=== PATIENT | male | born 1975 | race Two or more races ===

== ENCOUNTER 2017-12-15 23:32 | Emergency (ER) | payer OTHER ==
[2017-12-15] MEDS: LIDOCAINE WITH 8.4% SOD BICARB 3 ML DISP.SYRIN. INJ (23:55)
[2017-12-15] MEDS: DIPHTH,PERTUSS(ACELL),TET TOX 0.5 ML DISP.SYRIN. VAX IM (23:57)
== END 2017-12-16 00:29 | disposition home or self-care (01) ==
LOC: ER 12-16 00:29
DX: S61.011A Laceration without foreign body of right thumb without damage to nail, initial encounter (principal); W27.8XXA Contact with other nonpowered hand tool, initial encounter; Y93.89 Activity, other specified; Y92.89 Other specified places as the place of occurrence of the external cause; Y99.8 Other external cause status
CPT/HCPCS: 12001; 90471; 90715; 99283

== ENCOUNTER 2018-04-30 16:51 | Emergency (ER) | payer BC, OTHER ==
[~2018-04-30] VITALS: Ht 182.9 cm; Wt 97.5 kg
[2018-04-30 17:13] VITALS: BP 162/97
[2018-04-30 17:13] LABS: BILIRUBIN,URINE NEGATIVE (NEG); CLARITY,URINE CLOUDY; COLOR,URINE YELLOW; NITRITE,URINE NEGATIVE (NEG); PH,URINE 6.5; PROTEIN,URINE NEGATIVE (NEG-TRACE)
[2018-04-30] MEDS ORDERED: cefTRIAXone IM 250 MG VIAL IM ONE (17:15)
[2018-04-30] MEDS ORDERED: AZITHROMYCIN 250 MG TABLET. PO ONE (17:15)
--- NOTE | 2018-04-30 17:21 | PHYS DOC ---
Past Medical History Past Medical History: No Pertinent History Past Surgical History: No Surgical History Alcohol Use: Occasionally Drug Use: None Adult General Chief Complaint Chief Complaint: PAIN ON URINATION [facility] HPI Patient is a 42 year old male who presents with pain when urinating only since Tuesday. Patient states he has redness and tenderness just at the tip of his penis. Patient denied any drainage from his penis. Patient states he recently became sexually active again. Patient denies any back pain or pain in his bladder with her after urinating. Patient states it just hurts just at the tip. Patient has no known drug allergies. Review of Systems Review of Systems Constitutional: Denies fever or chills [] Eyes: Denies change in visual acuity, redness, or eye pain [] HENT: Denies nasal congestion or sore throat [] Respiratory: Denies cough or shortness of breath [] Cardiovascular: No additional information not addressed in HPI [] GI: Denies abdominal pain, nausea, vomiting, bloody stools or diarrhea [] : Dysuria, penial meatus tenderness and redness. Denies hematuria [] Musculoskeletal: Denies back pain or joint pain [] Integument: Denies rash or skin lesions [] Neurologic: Denies headache, focal weakness or sensory changes [] Endocrine: Denies polyuria or polydipsia [] All other systems were reviewed and found to be within normal limits, except as documented in this note. Current Medications Current Medications Current Medications Medications (Trade) Dose Ordered Sig/Yonatan Start Time Stop Time Status Last Admin Dose Admin Azithromycin (Zithromax) 1,000 mg 1X ONCE 04/30/18 17:15 04/30/18 17:17 DC Ceftriaxone Sodium (Rocephin Im) 250 mg 1X ONCE 04/30/18 17:15 04/30/18 17:17 DC Allergies Allergies Allergies Coded Allergies Type Severity Reaction Last Updated Verified No Known Drug Allergies 12/15/17 No Physical Exam Physical Exam Constitutional: Well developed, well nourished, no acute distress, non-toxic appearance. [] HENT: Normocephalic, atraumatic, bilateral external ears normal, oropharynx moist, no oral exudates, nose normal. [] Eyes: PERRLA, EOMI, conjunctiva normal, no discharge. [] Neck: Normal range of motion, no tenderness, supple, no stridor. [] Cardiovascular:Heart rate regular rhythm, no murmur [] Lungs & Thorax: Bilateral breath sounds clear to auscultation [] Abdomen: Bowel sounds normal, soft, no tenderness, no masses, no pulsatile masses. Penial meatus redness and purulent discharge. [] Skin: Warm, dry, no erythema, no rash. [] Back: No tenderness, no CVA tenderness. [] Extremities: No tenderness, no cyanosis, no clubbing, ROM intact, no edema. [] Neurologic: Alert and oriented X 3, normal motor function, normal sensory function, no focal deficits noted. [] Psychologic: Affect normal, judgement normal, mood normal. [] Current Patient Data Vital Signs Vital Signs Date Time Temp Pulse Resp B/P (MAP) Pulse Ox O2 Delivery O2 Flow Rate FiO2 04/30/18 17:13 100.0 97 18 162/97 (118) 98 Room Air 100.0 Lab Values Laboratory Tests Test 04/30/18 17:05 Urine Color Yellow Urine Clarity Cloudy Urine pH 6.5 Urine Specific Gage 1.015 Urine Protein Negative mg/dL (NEG-TRACE) Urine Glucose (UA) Negative mg/dL (NEG) Urine Ketones (Stick) Trace mg/dL (NEG) Urine Blood Small (NEG) Urine Nitrite Negative (NEG) Urine Bilirubin Negative (NEG) Urine Urobilinogen Dipstick 1.0 mg/dL (0.2 mg/dL) Urine Leukocyte Esterase Large (NEG) Urine RBC 0 /HPF (0-2) Urine WBC 20-40 /HPF (0-4) Urine Squamous Epithelial Cells Occ /LPF Urine Bacteria 0 /HPF (0-FEW) Urine Mucus Slight /LPF EKG EKG [] Radiology/Procedures Radiology/Procedures [] Course & Med Decision Making Course & Med Decision Making Patient is a 42 year old male who presents with pain when urinating only since Tuesday. Patient states he has redness and tenderness just at the tip of his penis. Patient denied any drainage from his penis. Patient states he recently became sexually active again. Patient denies any back pain or pain in his bladder with her after urinating. Patient states it just hurts just at the tip. Patient has no known drug allergies. Patient states he takes no medications daily. Patient denies smoking or drug use. Patient states he has one drink of hard liquor after work every night. Patient denies fever but urine ED his temp is under 100.0. Patient denies pain at this time. Scrotum is not swollen. With examination the meatus is reddened and there is purulent drainage from the penis. No lesions on the penis. Skin is pink warm and dry. Patient is told that he will be treated prophylactically for STDs and that his STD test will come back in 48 hours. Patient to follow-up with his primary care if needed. [] Dragon Disclaimer Dragon Disclaimer This electronic medical record was generated, in whole or in part, using a voice recognition dictation system. Departure Departure Impression: Primary Impression: Sexually transmitted disease Disposition: HOME, SELF-CARE Condition: STABLE Referrals: ORLANDO WHITE MD (PCP) Patient Instructions: Sexually Transmitted Disease Additional Instructions: Follow up with your primary care if not getting better. JOLANTA GANT APRN Apr 30, 2018 17:21
[2018-04-30 17:27] LABS: RBC,URINE 0 /HPF (0-2)
[2018-04-30 17:28] LABS: BACTERIA,URINE 0 /HPF (0-FEW); SQUAMOUS EPITHELIAL CELL,UR OCC /LPF; WBC,URINE 20-40 /HPF (0-4)
== END 2018-04-30 17:57 | disposition home or self-care (01) ==
LOC: ER 16:51
DX: Z20.2 Contact with and (suspected) exposure to infections with a predominantly sexual mode of transmission (principal); R30.0 Dysuria
CPT/HCPCS: 81001; 96372; 99284; J0696; Q0144; 87491; 87591